=== PATIENT | male | born 1995 | race Caucasian/White ===

== ENCOUNTER 2017-03-22 12:52 | Emergency (ER) | payer OTHER ==
[2017-03-22] MEDS ORDERED: NORMAL SALINE 1000 ML 1,000 ML IV ONE (13:04)
[2017-03-22] MEDS ORDERED: ONDANSETRON HCL INJ/PF 4 MG/2 ML SDV IV ONE (13:05)
--- NOTE | 2017-03-22 13:07 | ER Document Report ---
HPI - HPI Onset: Yesterday Onset/Duration: Gradual Quality of pain: No pain Pain Level: 4 Associated Symptoms: Vomiting Exacerbated by: Food Similar symptoms previously: No Recently seen / treated by doctor: No Notes: 22-year-old male presents with several days of vomiting which began after eating a cheeseburger that was left out for too long. Patient states the last 24 hours he is vomited 3 times. No diarrhea. No fevers or chills. No known ill contacts or recent travel. Mild abdominal cramping. No urinary symptoms. - DERM Skin Color: Normal Past Medical History - General Information source: Patient - Social History Smoking Status: Current Every Day Smoker Chew tobacco use (# tins/day): - 15 Frequency of alcohol use: Occasional Drug Abuse: None Family History: None Patient has suicidal ideation: No Patient has homicidal ideation: No Renal/ Medical History: Denies: Hx Peritoneal Dialysis Past Surgical History: Reports: Hx Tonsillectomy - Adenoidectomy Vertical Provider Document - CONSTITUTIONAL Agree With Documented VS: Yes Exam Limitations: No Limitations General Appearance: WD/WN, No Apparent Distress, Other - Not ill-appearing - INFECTION CONTROL TRAVEL OUTSIDE OF THE [place] IN LAST 30 DAYS: No - HEENT HEENT: Atraumatic, Normocephalic Notes: Moist mucous membranes - NECK Neck: Normal Inspection - RESPIRATORY Respiratory: Breath Sounds Normal, No Respiratory Distress O2 Sat by Pulse Oximetry: 98 - CARDIOVASCULAR Cardiovascular: Regular Rate, Regular Rhythm - GI/ABDOMEN Gastrointestinal: Abdomen Soft, Abdomen Non-Tender. negative: Abdominal Guarding, Abdominal Rebound - MUSCULOSKELETAL/EXTREMETIES Musculoskeletal/Extremeties: MAEW, FROM, Non-Tender - NEURO Level of Consciousness: Awake, Alert, Appropriate Motor/Sensory: No Motor Deficit, No Sensory Deficit - DERM Integumentary: Warm, Dry Course - Re-evaluation Re-evalutation: 03/22/17 14:06 No vomiting in the emergency department. Patient given 1 L IV fluids. Given Zofran. Tolerating p.o. challenge. Will discharge home. - Vital Signs Vital signs: Temp Pulse Resp BP Pulse Ox 98.2 F 75 16 142/89 H 98 03/22/17 12:56 03/22/17 12:56 03/22/17 12:56 03/22/17 12:56 03/22/17 12:56 Discharge - Discharge Clinical Impression: Vomiting Condition: Good Disposition: HOME, SELF-CARE Instructions: Vomiting ([facility]) Additional Instructions: Increase clear fluids. Follow-up with your primary care provider. Return if worse. Prescriptions: Ondansetron [Zofran Odt 4 mg Tablet] 1 - 2 tab PO Q4H PRN #15 tab.rapdis PRN Reason: For Nausea/Vomiting
[2017-03-22 14:21] VITALS: BP 138/92
== END 2017-03-22 14:21 | disposition home or self-care (01) ==
LOC: ER 12:52
DX: R11.10 Vomiting, unspecified (principal); R10.9 Unspecified abdominal pain; F17.200 Nicotine dependence, unspecified, uncomplicated
CPT/HCPCS: 99283; 96361; 96374; J2405; J7030